=== PATIENT | male | born 1990 ===

== ENCOUNTER 2016-10-28 21:06 | Emergency (ER) | payer SELFPAY ==
[2016-10-28 21:11] VITALS: BP 101/63; PULSE 80; RESP 16; TEMP 98.1; O2SAT 98
--- NOTE | 2016-10-28 21:25 | C.PDOC ---
History Of Present Illness 26 year old male who presents to the ER with a complaint of a laceration after slipping and hitting face on the bathroom sink 2 hours ago. Patient reports taking OTC medication. Denies LOC, dizziness, visual changes or vomiting. Time Seen by Provider: 10/28/16 21:14 Chief Complaint (Nursing): Abnormal Skin Integrity History Per: Patient History/Exam Limitations: no limitations Onset/Duration Of Symptoms: Hrs (2) Current Symptoms Are (Timing): Still Present Location Of Injury: Anterior: Head Recent travel outside of the [place]: No Past Medical History Reviewed: Historical Data, Nursing Documentation, Vital Signs Vital Signs: Last Vital Signs Temp 98.1 F 10/28/16 21:09 Pulse 80 10/28/16 21:09 Resp 16 10/28/16 21:09 BP 101/63 10/28/16 21:09 Pulse Ox 98 10/28/16 21:30 - Medical History PMH: No Chronic Diseases Surgical History: No Surg Hx Family History: States: Unknown Family Hx - Social History Hx Alcohol Use: No Hx Substance Use: No - Immunization History Hx Tetanus Toxoid Vaccination: No Hx Influenza Vaccination: No Hx Pneumococcal Vaccination: No Review Of Systems Gastrointestinal: Negative for: Vomiting Skin: Positive for: Other (laceration) Neurological: Negative for: Dizziness, Other (LOC) Physical Exam - Physical Exam Appears: Non-toxic, No Acute Distress Skin: Normal Color, Warm, Dry Head: Atraumatic, Normacephalic Eye(s): bilateral: Normal Inspection, PERRL, EOMI Nose: Normal, No Epistaxis, Other (0.5 cm wedge shaped laceration to upper part of nasal bridge, no bleeding) Oral Mucosa: Moist Tongue: Normal Appearing Lips: Normal Appearing Teeth: Normal Dentition, No Loose, No Avulsed Neck: Normal, Supple Chest: Symmetrical Extremity: Bilateral: Atraumatic, Normal Color And Temperature, Normal ROM Neurological/Psych: Oriented x3, Normal Speech, Other (No focal deficits) ED Course And Treatment O2 Sat by Pulse Oximetry: 98 (Room air) Pulse Ox Interpretation: Normal Laceration - Laceration Repair nose Wound Length (In cm): 0.5 Description Of Wound: Clean, Stellate Wound Examination: Irrigated With Saline, No FB With Wound Exploration Wound Closure: Skin Glue (dermabond) Wound Complexity: Simple Medical Decision Making Medical Decision Making: Impression: 26 year old male with a laceration to upper nose. Plan: * Skin glue Disposition - Disposition Disposition: HOME/ ROUTINE Disposition Time: 21:30 Condition: GOOD Additional Instructions: Pegamento de piel se utiliz para cerrar la herida, no aplicar ungento a la irene, ya que puede disolver el pegamento. El pegamento desaparecer gradualmente en pocos michael. Instructions: Skin Adhesive Care (ED) Print Language: [id number] - Clinical Impression Clinical Impression: Laceration of nose - Scribe Statement The provider has reviewed the documentation as recorded by the Scribe Saw Foster All medical record entries made by the Scribe were at my direction and personally dictated by me. I have reviewed the chart and agree that the record accurately reflects my personal performance of the history, physical exam, medical decision making, and the department course for this patient. I have also personally directed, reviewed, and agree with the discharge instructions and disposition.
== END 2016-10-28 21:57 | disposition home or self-care (01) ==
LOC: C.ER 21:06
DX: S01.21XA Laceration without foreign body of nose, initial encounter (principal); W01.198A Fall on same level from slipping, tripping and stumbling with subsequent striking against other object, initial encounter; Y92.89 Other specified places as the place of occurrence of the external cause